=== PATIENT | male | born 1955 | race Caucasian/White ===

== ENCOUNTER 2019-11-10 09:09 | Outpatient (RCR) | payer OTHER, SELFPAY | END 2019-11-23 00:01 | LOC: SPT 09:09 | PROVIDERS: Family Provider Family Medicine; Visit Provider Licensed Practical Nurse | DX: M51.17 Intervertebral disc disorders with radiculopathy, lumbosacral region (principal) | CPT/HCPCS: 97110 ×3; 97161 ==

== ENCOUNTER 2019-11-24 14:08 | Outpatient (RCR) | payer OTHER, MEDICARE, SELFPAY | END 2019-12-24 23:59 | disposition home or self-care (01) | LOC: SPT 14:08 | PROVIDERS: Family Provider Family Medicine; Visit Provider Licensed Practical Nurse | DX: M54.16 Radiculopathy, lumbar region (principal) ==

== ENCOUNTER 2020-03-20 11:33 | Outpatient (CLI) | payer OTHER, SELFPAY ==
--- NOTE | 2020-03-20 11:49 | XR_ITS ---
WS: [id number] PELVIS AND RIGHT HIP HISTORY: fall 1 week ago in shower, right hip pain COMPARISON: None available. Right hip: No acute fracture or dislocation. Mild narrowing of the RIGHT hip joint. Enthesopathy of the iliac crest. Degenerative changes in the lower lumbar spine with mild narrowing o f the hip joints and SI joints. XR/XR hip RT 2-3V wo/w pel* [id number] IMPRESSION: 1. No acute RIGHT hip fracture identified. 2. 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 3. If hip pain continues CT of the RIGHT hip may be necessary for occult fract ure evaluation.
--- NOTE | 2020-03-20 11:49 | XR_ITS ---
WS: [id number] PELVIS: AP VIEW SUBMITTED HISTORY: fall in shower 1 week ago, right hip pain COMPARISON: None available. No fracture identified. Extensive enthesopathy at the iliac crest. Mild narrowing of the SI joints an d hip joints. XR/XR pelvis 1-2V* [id number] IMPRESSION: No acute fracture.
== END 2020-03-20 11:34 | disposition home or self-care (01) ==
LOC: RAD 11:37
PROVIDERS: Family Provider Family Medicine; PCP Family Medicine; Visit Provider Nurse Practitioner Family
DX: M25.551 Pain in right hip (principal); M16.11 Unilateral primary osteoarthritis, right hip
CPT/HCPCS: 72170; 73502

== ENCOUNTER 2021-01-01 20:00 | Outpatient (CLI) | payer MEDICARE, SELFPAY | END 2021-01-01 20:01 | disposition home or self-care (01) | LOC: SLEEP 01-02 09:09 | PROVIDERS: Family Provider Family Medicine; PCP Family Medicine; Visit Provider Family Medicine | DX: G47.10 Hypersomnia, unspecified (principal); G47.33 Obstructive sleep apnea (adult) (pediatric) | CPT/HCPCS: 95811 ==

== ENCOUNTER 2022-11-07 07:41 | Outpatient (CLI) | payer OTHER, SELFPAY ==
--- NOTE | 2022-11-07 07:51 | USCV_ITS ---
Luis Enrique Tovar Age: 67 Gender: M : 1955 Exam Date: 11/07/2022 08:09 Ordering Phys: Georgette Ceron MD Technologist: Elio Dai Exam Location: [facility] [place]: murmur BP: 142 / 70 HR: 78 Rhythm: Other Technical Quality: Technically difficult study MEASUREMENTS (Male / Female) Normal Values 2D ECHO LV Diastolic Diameter PLAX 6.1 cm 4.2 - 5.9 / 3.9 - 5.3 cm LV Systolic Diameter PLAX 4.1 cm IVS Diastolic Thickness 0.8 cm 0.6 - 1.0 / 0.6 - 0.9 cm IVS Systolic Thickness 1.1 cm LVPW Diastolic Thickness 1.0 cm 0.6 - 1.0 / 0.6 - 0.9 cm LVPW Systolic Thickness 1.7 cm RV Chamber Size 2.7 cm LVOT Diameter 2.1 cm LV Ejection Fraction 2D Teich 59.6 % LV Ejection Fraction MOD 2C 34.5 % LV Ejection Fraction 2C AL 34.8 % LA Diameter 3.7 cm LA Width 3.0 cm LA Height 4.6 cm RA Width 3.3 cm RA Height 4.4 cm Aorta at Sinotubular Diameter 2.1 cm IVC Diameter 1.6 cm M-MODE Aortic Annulus Diameter 2.6 cm LA Ao Ratio MM 1.4 MV E Point Septal Separation 1.8 cm DOPPLER AV Peak Velocity 220.3 cm/s LVOT Peak Velocity 111.0 cm/s AV Area Cont Eq vti 1.3 cm squared AV Area Cont Eq pk 1.7 cm squared MV Peak Velocity 88.0 cm/s MV Area PHT 5.5 cm squared Mitral E to A Ratio 0.9 MV E' Velocity 43.8 cm/s Mitral E to MV E' Ratio 8.8 Mitral E to LV E' Lateral Ratio 6.3 Mitral E to LV E' Septal Ratio 14.9 TR Peak Velocity 193.1 cm/s TR Peak Gradient 14.9 mmHg TR Mean Velocity 156.4 cm/s TR Mean Gradient 10.0 mmHg TR Velocity Time Integral 35.8 cm Right Atrial Pressure 3.0 mmHg Pulmonary Artery Systolic Pressu 17.9 mmHg PV Peak Velocity 149.0 cm/s RV Acceleration Time 0.1 s RV Ejection Time 0.2 s RV AcT/ET 0.6 FINDINGS Left Ventricle Left ventricle is normal in size. Grossly LV systolic function is mild to moderately reduced. Regional wall motion abnormalities can not be assessed accurately because of poor ultrasonic windows. Right Ventricle Grossly normal Right Atrium Normal in size Left Atrium Normal in size Mitral Valve Grossly normal. Mild mitral regurgitation. Aortic Valve Not well visualized. Grossly thickened. Mild aortic stenosis with aortic valve area of 1.63cm2 and mean gradient across the aortic valve of 10mmHg. Tricuspid Valve Mild tricuspid regurgitation. Pulmonary artery systolic pressure is normal Pulmonic Valve Not visualized Pericardium Grossly normal Aorta Normal in size IVC Appears to be normal CONCLUSIONS Technically limited quality echocardiogram because of poor ultrasonic windows Grossly LV systolic function is mild to moderately reduced. Regional wall motion abnormalities can not be assessed accurately because of poor ultrasonic windows. Mild mitral regurgitation Mild aortic stenosis Mild tricuspid regurgitation. No comparison studies are available. Recommend limited echocardiogram with contrast to accurately assess LV EF and regional wall motion abnormalities. Arthur Murry MD (Electronically Signed) Final Date: 18 November 2022 17:47 S
== END 2022-11-07 07:42 | disposition home or self-care (01) ==
LOC: RAD 07:45
PROVIDERS: PCP Family Medicine; Visit Provider Family Medicine
DX: R01.1 Cardiac murmur, unspecified (principal); I34.0 Nonrheumatic mitral (valve) insufficiency; I35.0 Nonrheumatic aortic (valve) stenosis; I07.1 Rheumatic tricuspid insufficiency
CPT/HCPCS: 93306

== ENCOUNTER → 2023-06-10 08:32 | Outpatient (BNVA) | payer MEDICARE, OTHER, SELFPAY | PROVIDERS: PCP Family Medicine; Visit Provider Podiatrist Foot & Ankle Surgery | DX: M76.62 Achilles tendinitis, left leg (principal); M24.572 Contracture, left ankle; M77.32 Calcaneal spur, left foot | CPT/HCPCS: 73630; 99204 ==

== ENCOUNTER → 2023-08-13 14:57 | Outpatient (BNVA) | payer OTHER, SELFPAY | PROVIDERS: PCP Family Medicine; Visit Provider Podiatrist Foot & Ankle Surgery | DX: M76.62 Achilles tendinitis, left leg; M24.572 Contracture, left ankle; M77.32 Calcaneal spur, left foot | CPT/HCPCS: 99214 ==

== ENCOUNTER → 2023-09-25 07:41 | Outpatient (BNVA) | payer OTHER, SELFPAY | PROVIDERS: PCP Family Medicine; Visit Provider Podiatrist Foot & Ankle Surgery | DX: M76.62 Achilles tendinitis, left leg; M24.572 Contracture, left ankle; M77.32 Calcaneal spur, left foot | CPT/HCPCS: 99213 ==